=== PATIENT | male | born 1985 | race Caucasian/White ===

== ENCOUNTER 2017-04-26 14:13 | Emergency (ER) | payer SELFPAY ==
[2017-04-26 14:16] VITALS: BMI 25.9
[2017-04-26 14:19] VITALS: BP 127/84; PULSE 96; RESP 18; TEMP 98.5; O2SAT 97
[2017-04-26] MEDS ORDERED: Naproxen 550 mg Tab PO STA (14:52)
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
--- NOTE | 2017-04-26 15:19 | RAD ---
PROCEDURE: Right Hand Radiographs. HISTORY: pain COMPARISON: None. FINDINGS: BONES: Normal. No fracture. JOINTS: Normal. No osteoarthritic changes. SOFT TISSUES: Normal. OTHER FINDINGS: None. IMPRESSION: Normal right hand radiographs.
== END 2017-04-26 15:52 | disposition home or self-care (01) ==
LOC: ED 14:13
DX: S60.221A Contusion of right hand, initial encounter (principal); Y08.89XA Assault by other specified means, initial encounter; Y93.89 Activity, other specified; Y92.89 Other specified places as the place of occurrence of the external cause